=== PATIENT | male | born 1965 | race Caucasian/White ===

== ENCOUNTER 2021-06-01 10:43 | Emergency (ER) | payer SELFPAY ==
[~2021-06-01 10:43] MED LIST: KEFLEX500 MG PO
[2021-06-01] MEDS ORDERED: BACLOFEN 10MG T10 MG PO (13:05)
[2021-06-01] MEDS ORDERED: NAPROXEN500 MG PO (13:05)
== END 2021-06-01 13:24 | disposition home or self-care (01) ==
LOC: FER 10:43
DX: M94.0 Chondrocostal junction syndrome [Tietze] (principal); I10 Essential (primary) hypertension; E11.9 Type 2 diabetes mellitus without complications; F17.210 Nicotine dependence, cigarettes, uncomplicated
CPT/HCPCS: 71101; 94010; 96372; J1100; J1885